=== PATIENT | female | born 2000 | race Caucasian/White ===

== ENCOUNTER 2018-02-26 10:53 | Emergency (ER) | payer OTHER ==
[~2018-02-26] VITALS: Ht 160 cm; Wt 88.5 kg
[2018-02-26 10:53] VITALS: BP_SYST 127
[2018-02-26 11:50] VITALS: BP_SYST 127
== END 2018-02-26 11:50 | disposition home or self-care (01) ==
LOC: SED 10:53
DX: S93.402A Sprain of unspecified ligament of left ankle, initial encounter (principal); R03.0 Elevated blood-pressure reading, without diagnosis of hypertension; Z88.0 Allergy status to penicillin; W22.8XXA Striking against or struck by other objects, initial encounter; Y93.89 Activity, other specified; Y92.89 Other specified places as the place of occurrence of the external cause; Y99.8 Other external cause status
CPT/HCPCS: 73590-TC; 99284